=== PATIENT | male | born 1940 | race Caucasian/White ===

== ENCOUNTER 2017-05-11 12:39 | Emergency (ER) | payer OTHER, BC ==
[2017-05-11 13:06] VITALS: TEMP 98.2
--- NOTE | 2017-05-11 13:06 | EDPHY ---
H & P Time Seen by Provider: 05/11/17 12:59 HPI/ROS: CHIEF COMPLAINT: "I feel sick" HISTORY OF PRESENT ILLNESS: The patient presents to the ED with several days of generalized weakness, chills, diaphoresis and mild nausea. The patient reports his symptoms have been present since Sunday. He denies any cough or congestion. He denies fever. He does report dysuria and a history of BPH. The patient denies any back pain. The patient denies any rash. He denies recent antibiotic use. He has no complaints of acute abdominal pain, headache, neck pain, numbness or weakness. The patient states his symptoms are mild in nature. He denies additional acute complaints. REVIEW OF SYSTEMS: A comprehensive 10 point review of systems is otherwise negative aside from elements mentioned in the history of present illness. Source: Patient - Medical/Surgical History Hx Asthma: No Hx Chronic Respiratory Disease: No Hx Diabetes: No Hx Cardiac Disease: Yes Hx Renal Disease: No Hx Cirrhosis: No Hx Alcoholism: No Hx HIV/AIDS: No Hx Splenectomy or Spleen Trauma: No Other PMH: R sided BKA, hypertension, depression, gerd, hyperlipidemia, chronic pain related to trauma - Social History Smoking Status: Never smoked - Physical Exam Exam: General Appearance: Alert, no distress Eyes: Pupils equal and round no pallor or injection ENT, Mouth: Mucous membranes moist Respiratory: There are no retractions, lungs are clear to auscultation Cardiovascular: Regular rate and rhythm Gastrointestinal: Abdomen is soft and nontender, no masses, bowel sounds normal Neurological: A&O, normal motor function, normal sensory exam, normal cranial nerves Skin: Warm and dry, no rashes Musculoskeletal: Neck is supple nontender Extremities: symmetrical, full range of motion Constitutional: Initial Vital Signs Temperature (C) 36.8 C 05/11/17 13:03 Heart Rate 51 L 05/11/17 13:03 Respiratory Rate 18 05/11/17 13:03 Blood Pressure 142/74 H 05/11/17 13:03 O2 Sat (%) 98 05/11/17 13:03 O2 Delivery Mode Room Air Allergies/Adverse Reactions: No Known Allergies Allergy (Unverified 07/28/15 21:14) Home Medications: Medication Instructions Recorded Zofran Odt 07/28/15 Aspirin 05/26/16 Atorvastatin Calcium 05/26/16 Bisacodyl 05/26/16 Cholestyramine Packet 05/26/16 Ensure 05/26/16 Escitalopram Oxalate 05/26/16 Finasteride 05/26/16 GABAPENTIN 05/26/16 LORAZEPAM 05/26/16 Lexapro 05/26/16 Lisinopril 05/26/16 Loperamide 05/26/16 Metoprolol Tartrate 05/26/16 Nitrostat 05/26/16 OXcarbazepine 05/26/16 Percocet 7.5-325 mg Tablet 05/26/16 Polyethylene Glycol 3350 05/26/16 Tamsulosin HCl 05/26/16 Tylenol 05/26/16 Warfarin Sodium 05/26/16 traZODone 05/26/16 Medical Decision Making ED Course/Re-evaluation: The patient presents to the ED for evaluation of weakness, dysuria and general malaise for the past several days. The patient is afebrile in the emergency department. His urinalysis demonstrates no evidence of an infection. His vital signs are stable. The patient's postvoid residual is 0. The patient has an unremarkable CBC, serum chemistries and liver function test. The patient had serial examinations in the ED over 2 and 0.5 hour period. He is up and ambulatory. At this point time the etiology of his symptoms are uncertain. I do feel the patient may simply be having a mild viral syndrome. At this point time I see no indication for additional imaging or antibiotic therapy. The patient is comfortable being discharged home and returning for any acutely worsening symptoms. Differential Diagnosis: Differential diagnosis urinary tract infection, urinary retention, dehydration, metabolic abnormality - Data Points Laboratory Results: Laboratory Results 05/11/17 13:30 05/11/17 13:30 05/11/17 05/11/17 05/11/17 13:30 13:30 13:08 WBC 8.04 10^3/uL 10^3/uL (3.80-9.50) RBC 3.89 10^6/uL L 10^6/uL (4.40-6.38) Hgb 12.4 g/dL L g/dL (13.7-17.5) Hct 36.2 % L % (40.0-51.0) MCV 93.1 fL fL (81.5-99.8) MCH 31.9 pg pg (27.9-34.1) MCHC 34.3 g/dL g/dL (32.4-36.7) RDW 13.0 % % (11.5-15.2) Plt Count 176 10^3/uL 10^3/uL (150-400) MPV 10.3 fL fL (8.7-11.7) Neut % (Auto) 63.0 % % (39.3-74.2) Lymph % (Auto) 25.7 % % (15.0-45.0) [place] % (Auto) 8.0 % % (4.5-13.0) Eos % (Auto) 2.7 % % (0.6-7.6) Baso % (Auto) 0.5 % % (0.3-1.7) Nucleat RBC Rel Count 0.0 % % (0.0-0.2) Absolute Neuts (auto) 5.06 10^3/uL 10^3/uL (1.70-6.50) Absolute Lymphs (auto) 2.07 10^3/uL 10^3/uL (1.00-3.00) Absolute Monos (auto) 0.64 10^3/uL 10^3/uL (0.30-0.80) Absolute Eos (auto) 0.22 10^3/uL 10^3/uL (0.03-0.40) Absolute Basos (auto) 0.04 10^3/uL 10^3/uL (0.02-0.10) Absolute Nucleated RBC 0.00 10^3/uL 10^3/uL (0-0.01) Immature Gran % 0.1 % % (0.0-1.1) Immature Gran # 0.01 10^3/uL 10^3/uL (0.00-0.10) Sodium 135 mEq/L mEq/L (134-144) Potassium 4.1 mEq/L mEq/L (3.5-5.2) Chloride 102 mEq/L mEq/L (97-110) Carbon Dioxide 23 mEq/l mEq/l (22-31) Anion Gap 10 mEq/L mEq/L (8-16) BUN 18 mg/dL mg/dL (7-23) Creatinine 0.9 mg/dL mg/dL (0.7-1.3) Estimated GFR > 60 Glucose 116 mg/dL H mg/dL (70-100) Calcium 9.3 mg/dL mg/dL (8.5-10.4) Total Bilirubin 0.6 mg/dL mg/dL (0.1-1.4) Conjugated Bilirubin 0.3 mg/dL mg/dL (0.0-0.5) Unconjugated Bilirubin 0.3 mg/dL mg/dL (0.0-1.1) AST 23 IU/L IU/L (17-59) ALT 33 IU/L IU/L (21-72) Alkaline Phosphatase 78 IU/L IU/L (38-126) Total Protein 6.2 g/dL L g/dL (6.3-8.2) Albumin 3.6 g/dL g/dL (3.5-5.0) Urine Color JOEY Urine Appearance CLEAR Urine pH 5.0 (5.0-7.5) Ur Specific [place] 1.032 H (1.002-1.030) Urine Protein NEGATIVE (NEGATIVE) Urine Ketones NEGATIVE (NEGATIVE) Urine Blood NEGATIVE (NEGATIVE) Urine Nitrate NEGATIVE (NEGATIVE) Urine Bilirubin NEGATIVE (NEGATIVE) Urine Urobilinogen 2.0 EU H EU (0.2-1.0) Ur Leukocyte Esterase NEGATIVE (NEGATIVE) Urine Glucose NEGATIVE (NEGATIVE) Medications Given: Discontinued Medications Sodium Chloride (Ns) 1,000 mls @ 0 mls/hr IV EDNOW ONE; Wide Open PRN Reason: Protocol Stop: 05/11/17 14:04 Last Admin: 05/11/17 14:25 Dose: 1,000 mls Departure - Departure Disposition: Home, Routine, Self-Care Clinical Impression: Weakness Condition: Good Instructions: Weakness (ED) Additional Instructions: 1. Please return to the emergency department for any worsening symptoms or other concerns. 2. Please schedule a follow-up appointment with your primary care provider. Referrals: Patient,NotPresent [Unknown] - As per Instructions
[2017-05-11 13:43] LABS: PLATELET COUNT 176 10^3/uL (150-400)
[2017-05-11] MEDS ORDERED: NS 1,000 ML IV ONE ×2 (14:03)
[2017-05-11 15:00] VITALS: RESP 20
[2017-05-11 15:30] VITALS: BP 148/72; PULSE 71; O2SAT 97
== END 2017-05-11 15:30 | disposition home or self-care (01) ==
LOC: EDUNIT#
DX: R53.1 Weakness (principal); E86.9 Volume depletion, unspecified; I10 Essential (primary) hypertension; Z79.01 Long term (current) use of anticoagulants; Z79.82 Long term (current) use of aspirin

== ENCOUNTER 2017-06-26 20:00 | Emergency (ER) | payer OTHER, BC ==
--- NOTE | 2017-06-26 19:52 | EDPHY ---
H & P Constitutional: Initial Vital Signs Temperature (C) 37.0 C 06/26/17 20:00 Heart Rate 52 L 06/26/17 20:00 Respiratory Rate 18 06/26/17 20:00 Blood Pressure 194/108 H 06/26/17 20:00 O2 Sat (%) 96 06/26/17 20:00 O2 Delivery Mode Room Air Allergies/Adverse Reactions: No Known Allergies Allergy (Verified 06/26/17 20:23) Home Medications: Medication Instructions Recorded Zofran Odt 07/28/15 Aspirin 05/26/16 Atorvastatin Calcium 05/26/16 Bisacodyl 05/26/16 Cholestyramine Packet 05/26/16 Ensure 05/26/16 Escitalopram Oxalate 05/26/16 Finasteride 05/26/16 GABAPENTIN 05/26/16 LORAZEPAM 05/26/16 Lexapro 05/26/16 Lisinopril 05/26/16 Loperamide 05/26/16 Metoprolol Tartrate 05/26/16 Nitrostat 05/26/16 OXcarbazepine 05/26/16 Percocet 7.5-325 mg Tablet 05/26/16 Polyethylene Glycol 3350 05/26/16 Tamsulosin HCl 05/26/16 Tylenol 05/26/16 Warfarin Sodium 05/26/16 traZODone 05/26/16 Medical Decision Making ED Course/Re-evaluation: CHIEF COMPLAINT: Anxiety HISTORY OF PRESENT ILLNESS: The patient is a 77 y/o male with a history of bipolar disorder and anxiety arriving via EMS complaining of anxiety for the last 2 months. He describes episodes where he feels nervous, shaky, tense, and sweaty. He is prescribed Ativan and antidepressants that he is taking as directed, but does not believe they are working. He additionally complains of decreased appetite and reports weight loss. He has a scheduled appointment with [facility] later this week for initial evaluation. He denies suicidal or homicidal ideation. Denies intoxicants. REVIEW OF SYSTEMS: A 10 point review of systems was performed and is negative with the exception of the elements mentioned in the history of present illness. PHYSICAL EXAM: HR, BP, O2 Sat, RR. Temp noted General Appearance: Alert, well hydrated, appropriate, and non-toxic appearing. Head: Atraumatic without scalp tenderness or obvious injury Eyes: Pupils equal, round, reactive to light and accommodation, EOMI, no trauma , no injection. Nose: Atraumatic, no rhinorrhea, clear. Throat: Mucus membranes moist. Neck: Supple, nontender, no lymphadenopathy. Respiratory: No retractions, no distress, no wheezes, and no accessory muscle use. Lungs are clear to auscultation bilaterally. Cardiovascular: Regular rate and rhythm, no murmurs, rubs, or gallops. Good capillary refill all extremities. Gastrointestinal: Abdomen is soft, nontender, non-distended, no masses, no rebound, no guarding, no peritoneal signs. Musculoskeletal: Normal active ROM of all extremities, atraumatic. Right BKA. Neurological: Alert, appropriate, and interactive. The patient has non-focal cranial nerves, motor, sensory, and cerebellar exam. Skin: No rashes, good turgor, no nodules on palpation. Past medical history: HI x2, anxiety, depression, hypertension, GERD, hyperlipidemia, chronic pain Past surgical history: Cardiac stents x2, inguinal hernia repair, right BKA Family history: Noncontributory Social history: Nonsmoker. Son is POA. Prior medical records reviewed including ED visit 05/11/17 for malaise. DIFFERENTIAL DIAGNOSIS: The differential diagnosis for the patient's depression included but was not limited to functional and major depression, situational depression, medication side effect, drugs, and alcohol abuse. MEDICAL DECISION MAKING: This is a pleasant 77 y/o male who presents with recurrent episodes of anxiety and is requesting mental health evaluation. He is calm, cooperative, and denies any SI or HI. He is hemodynamically stable. It sounds like patient is attempting to get set up with local mental health resources to treat his symptoms and is requesting help adjusting his medications. Plan for basic mental health laboratory studies and mental health consult. [facility] are arranging for follow up in the next 1-2 days. They will provide recommendations on whether patient should change medications prior to that appointment. Patient will be discharged with instructions to use Lexapro and Ativan as advised until follow up with [facility]. Return precautions discussed. He is comfortable with this plan. - Data Points Laboratory Results: Laboratory Results 06/26/17 20:40 06/26/17 20:40 06/26/17 06/26/17 06/26/17 20:40 20:40 20:31 WBC 10.64 10^3/uL H 10^3/uL (3.80-9.50) RBC 4.14 10^6/uL L 10^6/uL (4.40-6.38) Hgb 13.5 g/dL L g/dL (13.7-17.5) Hct 38.4 % L % (40.0-51.0) MCV 92.8 fL fL (81.5-99.8) MCH 32.6 pg pg (27.9-34.1) MCHC 35.2 g/dL g/dL (32.4-36.7) RDW 13.0 % % (11.5-15.2) Plt Count 188 10^3/uL 10^3/uL (150-400) MPV 10.3 fL fL (8.7-11.7) Neut % (Auto) 68.0 % % (39.3-74.2) Lymph % (Auto) 22.6 % % (15.0-45.0) [place] % (Auto) 7.0 % % (4.5-13.0) Eos % (Auto) 1.8 % % (0.6-7.6) Baso % (Auto) 0.3 % % (0.3-1.7) Nucleat RBC Rel Count 0.0 % % (0.0-0.2) Absolute Neuts (auto) 7.25 10^3/uL H 10^3/uL (1.70-6.50) Absolute Lymphs (auto) 2.40 10^3/uL 10^3/uL (1.00-3.00) Absolute Monos (auto) 0.74 10^3/uL 10^3/uL (0.30-0.80) Absolute Eos (auto) 0.19 10^3/uL 10^3/uL (0.03-0.40) Absolute Basos (auto) 0.03 10^3/uL 10^3/uL (0.02-0.10) Absolute Nucleated RBC 0.00 10^3/uL 10^3/uL (0-0.01) Immature Gran % 0.3 % % (0.0-1.1) Immature Gran # 0.03 10^3/uL 10^3/uL (0.00-0.10) Sodium 140 mEq/L mEq/L (134-144) Potassium 4.1 mEq/L mEq/L (3.5-5.2) Chloride 107 mEq/L mEq/L (97-110) Carbon Dioxide 20 mEq/l L mEq/l (22-31) Anion Gap 13 mEq/L mEq/L (8-16) BUN 16 mg/dL mg/dL (7-23) Creatinine 0.8 mg/dL mg/dL (0.7-1.3) Estimated GFR > 60 Glucose 104 mg/dL H mg/dL (70-100) Calcium 10.0 mg/dL mg/dL (8.5-10.4) TSH Pending Urine Opiates Screen NEGATIVE (NEGATIVE) Urine Barbiturates NEGATIVE (NEGATIVE) Ur Phencyclidine Scrn NEGATIVE (NEGATIVE) Ur Amphetamine Screen NEGATIVE (NEGATIVE) U Benzodiazepines Scrn NON-NEGATIVE H (NEGATIVE) Urine Cocaine Screen NEGATIVE (NEGATIVE) U Marijuana (THC) Screen NEGATIVE (NEGATIVE) Departure - Departure Disposition: Home, Routine, Self-Care Clinical Impression: Anxiety Condition: Good Instructions: Anxiety (ED) Additional Instructions: Take Ativan and Lexapro as prescribed. Follow up with [facility] as planned. Return to the ED for worsening of condition. Referrals: Patient,NotPresent [Unknown] - As per Instructions [facility],. [Clinic] - As per Instructions Report Scribed for: Trell Maldonado Report Scribed by: Billie Monk Date of Report: 06/26/17 Time of Report: 20:11
[2017-06-26 20:25] VITALS: RESP 18; TEMP 98.6
[2017-06-26 20:52] LABS: PLATELET COUNT 188 10^3/uL (150-400)
[2017-06-26] MEDS ORDERED: LORazepam 1 MG TAB PO ONE (21:27)
[2017-06-26 23:36] VITALS: BP 190/95; PULSE 50; O2SAT 94
== END 2017-06-26 22:10 | disposition home or self-care (01) ==
LOC: EDUNIT#
DX: F41.9 Anxiety disorder, unspecified (principal); I10 Essential (primary) hypertension; I25.2 Old myocardial infarction; Z79.82 Long term (current) use of aspirin; Z95.5 Presence of coronary angioplasty implant and graft
CPT/HCPCS: 80305

== ENCOUNTER → 2017-10-03 | Outpatient (CLI) | payer OTHER, BC | LOC: BHFA 14:00 | PROVIDERS: ATTEND Internal Medicine Cardiovascular Disease | DX: I48.91 Unspecified atrial fibrillation (principal); I25.10 Atherosclerotic heart disease of native coronary artery without angina pectoris | CPT/HCPCS: 78452; 93017; A9500; J2785 ==

== ENCOUNTER 2018-01-31 16:58 | Emergency (ER) | payer OTHER, BC ==
--- NOTE | 2018-01-31 17:45 | EDPHY ---
General - History Smoking Status: Never smoked Time Seen by Provider: 01/31/18 17:21 Narrative: CHIEF COMPLAINT: Anxiety attacks HISTORY OF PRESENT ILLNESS: Patient presents with complaints of anxiety attacks. He states over the past few days he has had increasing anxiety and depression. He has no thoughts of self-harm or harm towards others. He is frustrated because he feels that he needs his medications changed. He states this happens every year in the middle of the summer, when the days become shorter. He has multiple medications that he takes for this. He has contacted a psychiatrist, home he is not able to see for 2 weeks. He is requesting that we changes medications and no further evaluation. No other associated complaints or modifying factors. REVIEW OF SYSTEMS: Ten systems reviewed and are negative unless otherwise noted in the HPI PCP: Ean Rasheed physician SPECIALISTS: Pending psychiatry follow-up PAST MEDICAL HISTORY: Anxiety, depression, dyslipidemia, chronic pain, bipolar disorder, osteoarthritis PAST SURGICAL HISTORY: Right BKA SOCIAL HISTORY: Nonsmoker. Lives in assisted living at [facility]. FAMILY HISTORY: Noncontributory EXAMINATION General Appearance: Alert, no distress. Well-developed well-nourished. Head: normocephalic, atraumatic Eyes: Pupils equal and round, no conjunctival pallor or injection ENT, Mouth: Mucous membranes moist Neck: Normal inspection, supple, non-tender Respiratory: Lungs are clear to auscultation Cardiovascular: Regular rate and rhythm. No murmur Gastrointestinal: Abdomen is soft and nontender Back: non-tender, no bony abnormalities Neurological: A&O, nonfocal, normal gait Skin: Warm and dry, no rash Extremities: Right lower extremity BKA with prosthetic in place. Range of motion is symmetric in the upper extremities. Psychiatric: Mood and affect normal DIFFERENTIAL DIAGNOSES: Including but not limited to depression, anxiety, bipolar disorder, seasonal affective disorder MDM: 5:30 p.m. Increasing anxiety and depression with no suicidal ideation or homicidal ideation. I had a very lengthy discussion with patient regarding his medications, and that I do not feel it appropriate for me to alter these medications. I do feel it is best he contact his primary care physician or psychiatrist to altered these. I informed him that I am happy to provide a short course of a low-dose hydroxyzine augment his medications. Also discussed providing the on-call primary care physician for him, as he is requesting this for new physician. We discussed ED precautions for any changes symptoms, worsening symptoms, thoughts of self-harm or harm towards others. He is comfortable this plan and discharged in stable condition. SUPERVISION: This patient was independently evaluated without direct involvement of or examination by the attending physician. (Davin Camacho) Discussion: The patient was evaluated and managed by the Physician Optical Effects Camera Operator. My co- signature indicates that I have reviewed this chart and I agree with the findings and plan of care as documented. I am the secondary supervising physician. (Giuliana Clark) - Objective Vital Signs: Initial Vital Signs Temperature (C) 36.9 C 01/31/18 17:03 Heart Rate 46 L 01/31/18 17:03 Respiratory Rate 18 01/31/18 17:03 Blood Pressure 174/94 H 01/31/18 17:03 O2 Sat (%) 96 01/31/18 17:03 O2 Delivery Mode Room Air Allergies/Adverse Reactions: No Known Allergies Allergy (Verified 01/26/18 19:02) Home Medications: Medication Instructions Recorded Zofran Odt 07/28/15 Aspirin 05/26/16 Atorvastatin Calcium 05/26/16 Bisacodyl 05/26/16 Cholestyramine Packet 05/26/16 Ensure 05/26/16 Escitalopram Oxalate 05/26/16 Finasteride 05/26/16 GABAPENTIN 05/26/16 LORAZEPAM 05/26/16 Lexapro 05/26/16 Lisinopril 05/26/16 Loperamide 05/26/16 Metoprolol Tartrate 05/26/16 Nitrostat 05/26/16 OXcarbazepine 05/26/16 Percocet 7.5-325 mg Tablet 05/26/16 Polyethylene Glycol 3350 05/26/16 Tamsulosin HCl 05/26/16 Tylenol 05/26/16 Warfarin Sodium 05/26/16 traZODone 05/26/16 hydrOXYzine HCL 10 mg PO Q8 PRN #12 tab 01/31/18 Departure - Departure Disposition: Home, Routine, Self-Care Clinical Impression: Anxiety, Bipolar disease, chronic Condition: Good Instructions: Anxiety (ED), Anxiolysis in Adults (ED) Additional Instructions: 1. Continue previous medications 2. Hydroxyzine as prescribed as needed 3. Contact the on-call primary care physician as discussed 4. Contact your psychiatrist for outpatient care 5. Return here or to the crisis Center for any thoughts of self-harm or harm towards others, or increasing depression Referrals: Kacy Artis MD [Medical Doctor] - As per Instructions Physician,Emergency DepMD mick [Medical Doctor] - As per Instructions (For any thoughts of self-harm or harm towards others) Prescriptions: hydrOXYzine HCL 10 mg PO Q8 PRN #12 tab PRN Reason: Anxiety
[2018-01-31 19:30] VITALS: BP 148/83
== END 2018-01-31 19:37 | disposition home or self-care (01) ==
LOC: EDUNIT#
DX: F41.9 Anxiety disorder, unspecified (principal); F31.9 Bipolar disorder, unspecified; Z79.82 Long term (current) use of aspirin

== ENCOUNTER 2018-03-07 15:33 | Emergency (ER) | payer OTHER, BC ==
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
[2018-03-07 15:54] VITALS: BP 150/80
--- NOTE | 2018-03-07 17:00 | ASMTLCPROG ---
Notes Note: Notes: I gave pt a referral to [facility]. Pt stated he doesn't feel like his meds are working anymore and he has had difficulty getting an appt to a psychiatrist. Date Signed: 03/07/2018 04:58 PM Electronically Signed By:Martine Rosenthal
--- NOTE | 2018-03-08 11:18 | ASDISCHSUM ---
Discharge Information Plan Status:Assisted Living Medically Cleared to Leave: Discharge Date:03/07/2018 08:49 PM D/C Disposition:Assisted Living ADT D/C Disposition:Home, Routine, Self-Care Projected Discharge Date:03/07/2018 08:49 PM Transportation at D/C:Cab Voucher Discharge Delay Reason: Follow-Up Date:03/07/2018 08:49 PM Discharge Slot: Final Diagnosis: Placement Information Patient Contact Information Contact Name:JACOBO Relationship:Janak Address: City:[place] Alternate Phone: [facility] Code:MAYE Email: Financial Information Financial Class:Medicare Primary Plan Desc:MEDICARE OUTPATIENT Primary Plan Number:[id number] Secondary Plan Desc: OUT OF STATE [facility] Secondary Plan Number:[id number] Assessment Information TLC Progress Note Notes Note: Notes: I gave pt a referral to [facility] Counseling center. Pt stated he doesn't feel like his meds are working anymore and he has had difficulty getting an appt to a psychiatrist. Date Signed: 03/07/2018 04:58 PM Electronically Signed By:Martine Rosenthal Intervention Information Intervention Type:Transportation Date of Service:03/07/2018 07:00 PM Patient Type:Emergency Room Staff Member:JULIOCESAR Martinez [place] Hours:0.25 Discipline:Gaming Investigator Severity: Comment:cab voucher provided Intervention Type:Post Acute Communication Date of Service:03/07/2018 07:00 PM Patient Type:Emergency Room Staff Member:JULIOCESAR Martinez [place] Hours:0.25 Discipline:Gaming Investigator Severity: Comment:Spoke w/RN at [facility], relayed discharge instructions and new medication Rxn.
== END 2018-03-07 20:49 | disposition home or self-care (01) ==
LOC: EDUNIT#
DX: F41.9 Anxiety disorder, unspecified (principal); F32.9 Major depressive disorder, single episode, unspecified; R45.851 Suicidal ideations

== ENCOUNTER 2018-10-02 11:39 | Emergency (ER) | payer BC, OTHER ==
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
[2018-10-02 12:02] LABS: PLATELET COUNT 186 10^3/uL (150-400)
[2018-10-02] MEDS ORDERED: IOPAMIDOL (ISOVUE-300) 100 ML BTL ONE (12:33)
[2018-10-02 14:01] VITALS: BP 150/74
== END 2018-10-02 14:00 | disposition home or self-care (01) ==
LOC: EDUNIT#
DX: M51.16 Intervertebral disc disorders with radiculopathy, lumbar region (principal); M47.27 Other spondylosis with radiculopathy, lumbosacral region; K57.90 Diverticulosis of intestine, part unspecified, without perforation or abscess without bleeding; I10 Essential (primary) hypertension; E78.5 Hyperlipidemia, unspecified
CPT/HCPCS: 72100; 74177; 99285; Q9967